=== PATIENT | male | born 1995 | race Native Hawaiian/Other Pacific Islander ===

== ENCOUNTER 2017-10-26 06:35 | Emergency (ER) | payer OTHER ==
[~2017-10-26] VITALS: Ht 167.6 cm; Wt 59.0 kg
[2017-10-26 06:42] VITALS: TEMP 98.4
[2017-10-26 07:10] LABS: PLATELET COUNT 359 K/uL (142-355)
[2017-10-26 09:15] VITALS: BP 110/70
== END 2017-10-26 09:45 | disposition short-term general hospital (02) ==
LOC: ED 06:35
DX: S02.2XXA Fracture of nasal bones, initial encounter for closed fracture (principal); M25.521 Pain in right elbow; M54.5 Low back pain; V59.40XA Driver of pick-up truck or van injured in collision with unspecified motor vehicles in traffic accident, initial encounter
CPT/HCPCS: 36415; 80307; 81000; 85027; 99283

== ENCOUNTER 2017-11-18 05:29 | Outpatient (CLI) | payer OTHER | END 2017-11-18 05:35 | disposition home or self-care (01) | LOC: AMB 05:29 | DX: Z04.1 Encounter for examination and observation following transport accident (principal) ==

== ENCOUNTER 2018-07-25 08:35 | Outpatient (CLI) | payer OTHER | END 2018-07-25 22:51 | disposition home or self-care (01) | LOC: US 08:35 | DX: R11.2 Nausea with vomiting, unspecified (principal); R11.10 Vomiting, unspecified ==